=== PATIENT | male | born 1935 | race Two or more races ===

== ENCOUNTER 2017-09-12 13:10 | Emergency (ER) | payer OTHER ==
[~2017-09-12] VITALS: Ht 180.3 cm; Wt 104.3 kg
[2017-09-12] MEDS ORDERED: DIOVAN320 MG PO (13:30)
== END 2017-09-12 21:12 | disposition home or self-care (01) ==
LOC: ER 13:10
DX: S00.83XA Contusion of other part of head, initial encounter (principal); S60.418A Abrasion of other finger, initial encounter; W45.8XXA Other foreign body or object entering through skin, initial encounter; Y93.89 Activity, other specified; Y92.238 Other place in hospital as the place of occurrence of the external cause; Y99.8 Other external cause status

== ENCOUNTER 2017-09-25 13:17 | Outpatient (CLI) | payer OTHER ==
[~2017-09-25 13:17] MED LIST: DIOVAN320 MG PO
== END 2017-09-25 15:21 | disposition home or self-care (01) ==
LOC: MRI 13:17
DX: S09.8XXA Other specified injuries of head, initial encounter (principal)
CPT/HCPCS: 70551

== ENCOUNTER 2018-08-07 15:47 | Emergency (ER) | payer OTHER ==
[~2018-08-07] VITALS: Ht 177.8 cm; Wt 98.9 kg
[2018-08-07] MEDS ORDERED: DIOVAN320 MG (15:57)
[2018-08-07] MEDS ORDERED: AMLODIPINE BESYL5 MG (15:58)
[2018-08-07] MEDS ORDERED: HYDRALAZIN20 MG/1 ML (15:58)
== END 2018-08-07 22:39 | disposition home or self-care (01) ==
LOC: ER 15:47
DX: K29.60 Other gastritis without bleeding (principal); E86.0 Dehydration; R11.2 Nausea with vomiting, unspecified; R10.84 Generalized abdominal pain

== ENCOUNTER 2018-08-09 10:44 | Inpatient (IN) | payer OTHER ==
[~2018-08-09] VITALS: Ht 177.8 cm; Wt 98.9 kg
[~2018-08-09 10:44] MED LIST changes: +AMLODIPINE BESYL5 MG; +DIOVAN320 MG; +HYDRALAZIN20 MG/1 ML
[2018-08-30] MEDS ORDERED: LOVENOX40 MG/0.4 SUBCUTANEO (07:30)
[2018-08-30] MEDS ORDERED: XOPENEX0.63 MG/3 IH (07:30)
== END 2018-08-30 18:25 | DRG 356 ==
LOC: ER 10:44 → ICU-2 17:19 → ICU 17:19 → MEDJ 17:19 → ICU-2 08-12 13:36 → MEDJ 08-12 13:49 → ICU 08-13 16:48 → SURG 08-27 19:14
PROVIDERS: Surgery; ADMIT Internal Medicine
PROC: 02HV33Z Insertion of Infusion Device into Superior Vena Cava, Percutaneous Approach (ICD-10-PCS; 2018-08-09)
PROC: 0T9B70Z Drainage of Bladder with Drainage Device, Via Natural or Artificial Opening (ICD-10-PCS; 2018-08-09)
PROC: B246ZZZ Ultrasonography of Right and Left Heart (ICD-10-PCS; 2018-08-10)
PROC: BW21YZZ Computerized Tomography (CT Scan) of Abdomen and Pelvis using Other Contrast (ICD-10-PCS; 2018-08-10)
PROC: 3E0336Z Introduction of Nutritional Substance into Peripheral Vein, Percutaneous Approach (ICD-10-PCS; 2018-08-10)
PROC: 4A033R1 Measurement of Arterial Saturation, Peripheral, Percutaneous Approach (ICD-10-PCS; 2018-08-12)
PROC: 0DJ08ZZ Inspection of Upper Intestinal Tract, Via Natural or Artificial Opening Endoscopic (ICD-10-PCS; 2018-08-13)
PROC: 30233N1 Transfusion of Nonautologous Red Blood Cells into Peripheral Vein, Percutaneous Approach (ICD-10-PCS; 2018-08-13)
PROC: 0BH17EZ Insertion of Endotracheal Airway into Trachea, Via Natural or Artificial Opening (ICD-10-PCS; 2018-08-13)
PROC: 5A1945Z Respiratory Ventilation, 24-96 Consecutive Hours (ICD-10-PCS; 2018-08-13)
PROC: 3E0F7GC Introduction of Other Therapeutic Substance into Respiratory Tract, Via Natural or Artificial Opening (ICD-10-PCS; 2018-08-16)
PROC: 0DBV4ZZ Excision of Mesentery, Percutaneous Endoscopic Approach (ICD-10-PCS; principal; 2018-08-16 07:00)
DX: K56.690 Other partial intestinal obstruction (principal); A41.9 Sepsis, unspecified organism; K22.6 Gastro-esophageal laceration-hemorrhage syndrome; J96.21 Acute and chronic respiratory failure with hypoxia; R57.8 Other shock; I50.23 Acute on chronic systolic (congestive) heart failure; K65.8 Other peritonitis; K22.11 Ulcer of esophagus with bleeding; K25.0 Acute gastric ulcer with hemorrhage; N17.8 Other acute kidney failure; J98.11 Atelectasis; N18.4 Chronic kidney disease, stage 4 (severe); J90 Pleural effusion, not elsewhere classified; N39.0 Urinary tract infection, site not specified; D62 Acute posthemorrhagic anemia; E87.2 Acidosis; I13.0 Hypertensive heart and chronic kidney disease with heart failure and stage 1 through stage 4 chronic kidney disease, or unspecified chronic kidney disease; G72.81 Critical illness myopathy; Z99.11 Dependence on respirator [ventilator] status; K57.30 Diverticulosis of large intestine without perforation or abscess without bleeding; K80.50 Calculus of bile duct without cholangitis or cholecystitis without obstruction; Z80.42 Family history of malignant neoplasm of prostate; E86.0 Dehydration; I37.1 Nonrheumatic pulmonary valve insufficiency; I34.0 Nonrheumatic mitral (valve) insufficiency; B95.4 Other streptococcus as the cause of diseases classified elsewhere; E87.8 Other disorders of electrolyte and fluid balance, not elsewhere classified; I95.89 Other hypotension; Z74.01 Bed confinement status; K66.8 Other specified disorders of peritoneum; E88.09 Other disorders of plasma-protein metabolism, not elsewhere classified; K56.51 Intestinal adhesions [bands], with partial obstruction; T36.8X1A Poisoning by other systemic antibiotics, accidental (unintentional), initial encounter; B96.1 Klebsiella pneumoniae [K. pneumoniae] as the cause of diseases classified elsewhere

== ENCOUNTER 2020-02-05 09:20 | Outpatient (CLI) | payer OTHER ==
[~2020-02-05 09:20] MED LIST changes: +LOVENOX40 MG/0.4 SUBCUTANEO; +XOPENEX0.63 MG/3 IH
== END 2020-02-05 09:30 | disposition home or self-care (01) ==
LOC: TOM 09:20
PROVIDERS: ATTEND Surgery
DX: Q44.6 Cystic disease of liver (principal); K57.90 Diverticulosis of intestine, part unspecified, without perforation or abscess without bleeding; K44.9 Diaphragmatic hernia without obstruction or gangrene; K57.30 Diverticulosis of large intestine without perforation or abscess without bleeding; K56.699 Other intestinal obstruction unspecified as to partial versus complete obstruction

== ENCOUNTER 2021-02-21 08:19 | Outpatient (CLI) | payer OTHER | END 2021-02-21 08:45 | disposition home or self-care (01) | LOC: SONOGRAMA 08:19 | PROVIDERS: ATTEND Pathology Anatomic Pathology & Clinical Pathology | DX: D34 Benign neoplasm of thyroid gland (principal); E04.8 Other specified nontoxic goiter ==